=== PATIENT | female | born 1965 | race Hispanic/Latino ===

== ENCOUNTER 2017-12-26 13:03 | Emergency (ER) | payer BC ==
[2017-12-26 14:08] VITALS: BMI 29.2
== END 2017-12-26 16:39 | disposition left against medical advice (07) ==
LOC: ED 13:03
DX: Z02.89 Encounter for other administrative examinations (principal); Z00.00 Encounter for general adult medical examination without abnormal findings

== ENCOUNTER 2017-12-26 17:17 | Emergency (ER) | payer BC ==
[2017-12-26 17:18] VITALS: BMI 29.2
[2017-12-26 17:41] VITALS: BP 131/71; PULSE 64; RESP 20; TEMP 98.8; O2SAT 99
--- NOTE | 2017-12-26 18:40 | ED PDOC ---
Arrival/HPI - General Chief Complaint: Medical Clearance Time Seen by Provider: 12/26/17 18:23 Historian: Patient - History of Present Illness Narrative History of Present Illness (Text): 12/26/17 18:48 52-year-old female presents today concerned after having contact with a patient with known VRE resistant infection. Patient denies chest pain or shortness of breath. Patient denies cough. She denies fevers or chills. Patient denies fatigue. No abdominal pain. Patient denies any urinary symptoms. Patient states the family member of the patient with a resistant infection told her that she should get checked out. Patient also on a side note states that she has an area along the lower gingiva that is a wound that has not been healing. Patient complaining of minimal pain when she uses the dentures. Patient denies any recent trauma or injury. She denies trismus or drooling. Patient states she recently completed antibiotics but states the wound did not heal. Patient denies a history of smoking. Patient states she has been unable to follow-up with the dentist because she is away from her home town and believes that she will not be home for another month or so. Past Medical History - Provider Review Nursing Documentation Reviewed: Yes - Travel History Have you recently traveled outside [place] w/in the past 3 mons?: No - Infectious Disease Hx of Infectious Diseases: None - Reproductive Menopause: Yes - Cardiac Hx Cardiac Disorders: Yes Hx Pacemaker: Yes (2013) - Pulmonary Hx Respiratory Disorders: Yes Hx Bronchitis: Yes Hx Pneumonia: Yes - Neurological Hx Neurological Disorder: No - HEENT Hx HEENT Disorder: No - Renal Hx Renal Disorder: No - Endocrine/Metabolic Hx Endocrine Disorders: Yes Hx Diabetes Mellitus Type 2: Yes - Hematological/Oncological Hx Blood Disorders: Yes Hx Anemia: Yes Hx Leukemia: Yes - Integumentary Hx Dermatological Disorder: No - Musculoskeletal/Rheumatological Hx Musculoskeletal Disorders: No - Gastrointestinal Hx Gastrointestinal Disorders: No - Genitourinary/Gynecological Hx Genitourinary Disorders: No - Psychiatric Hx Psychophysiologic Disorder: No Hx Substance Use: No - Surgical History Hx Gastric Bypass Surgery: Yes Other/Comment: pacemaker - Anesthesia Hx Anesthesia: No Family/Social History - Physician Review Nursing Documentation Reviewed: Yes Family/Social History: Unknown Family HX Smoking Status: Never Smoked Hx Alcohol Use: Yes Hx Substance Use: No Allergies/Home Meds Allergies/Adverse Reactions: Allergies iron Allergy (Verified 12/26/17 14:07) RASH Home Medications: Home Meds Medication Instructions Recorded Confirmed Amoxicillin 875 mg PO BID 12/26/17 12/26/17 Aspirin 325 mg PO DAILY 12/26/17 12/26/17 Furosemide [Lasix] 80 mg PO DAILY 12/26/17 12/26/17 LORazepam [Ativan] 1 mg PO PRN PRN 12/26/17 12/26/17 Magnesium Oxide [Magnesium] 1,000 mg PO DAILY 12/26/17 12/26/17 Pantoprazole [Protonix] 40 mg PO DAILY 12/26/17 12/26/17 Phenobarbital [PHENobarbital Tab] 64.8 mg PO TID 12/26/17 12/26/17 Sucralfate [Carafate] 1 gm PO QID 12/26/17 12/26/17 Verapamil [Verapamil HCl] 120 mg PO TID 12/26/17 12/26/17 metFORMIN [glucOPHAGE] 500 mg PO BID 12/26/17 12/26/17 Review of Systems - Review of Systems Constitutional: absent: Fatigue, Fevers Respiratory: absent: SOB, Cough Cardiovascular: absent: Chest Pain, Palpitations Gastrointestinal: absent: Abdominal Pain, Nausea, Vomiting Genitourinary Female: absent: Dysuria, Frequency, Hematuria Musculoskeletal: absent: Arthralgias, Back Pain, Neck Pain Skin: Skin Lesions (ulcer in lower gums). absent: Rash, Pruritis Neurological: absent: Headache, Dizziness Psychiatric: absent: Anxiety, Depression Physical Exam Vital Signs Reviewed: Yes Vital Signs Temp Pulse Resp BP Pulse Ox 12/26/17 17:35 98.8 F 64 20 131/71 99 Temperature: Afebrile Blood Pressure: Normal Pulse: Regular Respiratory Rate: Normal Appearance: Positive for: Well-Appearing, Non-Toxic, Comfortable Pain Distress: None Mental Status: Positive for: Alert and Oriented X 3 - Systems Exam Head: Present: Atraumatic Mouth: Present: Moist Mucous Membranes, Normal Tounge. No: Drooling, Trismus, Normal Lips (there is a linear abrasion with small ulceration located along the lower gingiva and mucosa; no erythema; minimally tender, no edema ), Normal Teeth (dentures ) Neck: Present: Normal Range of Motion, Trachea Midline Respiratory/Chest: Present: Clear to Auscultation, Good Air Exchange. No: Respiratory Distress, Accessory Muscle Use Cardiovascular: Present: Regular Rate and Rhythm, Normal S1, S2. No: Murmurs Upper Extremity: Present: Normal ROM Lower Extremity: Present: Normal ROM Neurological: Present: GCS=15, Speech Normal Skin: Present: Warm, Dry Psychiatric: Present: Alert, Oriented x 3 Medical Decision Making ED Course and Treatment: 12/26/17 18:58 52yr old female presents today with concerns for boby VRE infection after having contact with a person with VRE uti. pt denies fevers,fatigue, weakness. pt with linear abrasion and small ulceration to mucosa/gingiva of lower mouth without erythema, edema or infection; wound possibly due to dentures. case discussed with dr. devi; will send blood cultures for vre infection. will place patient on clindamycin for dental ulcer/abrasion. advised f/u with dentist; advised patient of importance of f/u to r/o any cancerous lesion. advised immediate return if symptoms worsen,persist or if new symptoms develop. Patient verbalizes understanding of discharge instructions and need for immediate followup. all aspects of this case were discussed the attending of record. impression; mouth sore Clindamycin 3 times daily 7 days Follow-up with the dentist within the next 2 days Follow-up with primary care physician within the next 2 days Return immediately if symptoms worsen or persist or if new concerning symptoms develop: High fevers, increasing pain, redness, swelling, purulent discharge Disposition/Present on Arrival - Present on Arrival Any Indicators Present on Arrival: No History of DVT/PE: No History of Uncontrolled Diabetes: No Urinary Catheter: No History of Decub. Ulcer: No History Surgical Site Infection Following: None - Disposition Have Diagnosis and Disposition been Completed?: Yes Diagnosis: Ulceration, oral mucosa Disposition: HOME/ ROUTINE Disposition Time: 18:37 Patient Plan: Discharge Condition: GOOD Discharge Instructions (ExitCare): Mouth Sores Additional Instructions: Clindamycin 3 times daily 7 days Follow-up with the dentist within the next 2 days Follow-up with primary care physician within the next 2 days Return immediately if symptoms worsen or persist or if new concerning symptoms develop: High fevers, increasing pain, redness, swelling, purulent discharge Prescriptions: Clindamycin [Cleocin] 150 mg PO TID #21 cap Referrals: Jaden Rashid DMD [Non-Staff] - Follow up with primary Cristóbal Sheikh, HEATHER [Staff Provider] - Follow up with primary PCP,NO [Primary Care Provider] - Follow up with primary Shorty Alas DO [Staff Provider] - Follow up with primary
== END 2017-12-26 18:55 | disposition home or self-care (01) ==
LOC: ED 17:17
DX: K12.1 Other forms of stomatitis (principal); E11.9 Type 2 diabetes mellitus without complications

== ENCOUNTER 2018-10-09 11:09 | Outpatient (CLI) | payer BC | END 2018-10-09 11:10 | disposition home or self-care (01) | LOC: RAD 11:09 ==

== ENCOUNTER 2018-10-16 08:26 | Outpatient (CLI) | payer BC | END 2018-10-16 08:27 | disposition home or self-care (01) | LOC: RAD 08:26 ==

== ENCOUNTER 2019-01-09 18:50 | Inpatient (IN) | payer BC ==
[2019-01-09 19:15] VITALS: BMI 29.5
[2019-01-09] MEDS ORDERED: Sodium Chloride 0.9% 1,000 ML IV STA (19:15)
--- NOTE | 2019-01-09 19:23 | ED PDOC ---
Arrival/HPI <Phill Flower - Last Filed: 01/09/19 22:04> - General Historian: Patient - History of Present Illness Narrative History of Present Illness (Text): 01/09/19 23:12 53 y/o female with PMH of leukemia, type 2 DM, seizure disorder, presents to the ED c/o diarrhea x 4 days. Admits to 4-5 episodes of loose brown stools daily. Associated chills, nausea, lower back pain, and lower abdominal pain, worst in LLQ. Symptoms began after eating tacobell 4 days ago. No sick contacts, recent travel, or recent antibiotic use. Denies fever, vomiting, urinary symptoms, chest pain, SOB, cough, congestion, hematemesis, hematochezia, melena, vaginal bleeding, or any other associated symptoms. <Jane Ramírez - Last Filed: 01/12/19 19:07> - General Chief Complaint: Abdominal Pain Time Seen by Provider: 01/09/19 19:02 Past Medical History - Provider Review Nursing Documentation Reviewed: Yes - Infectious Disease Hx of Infectious Diseases: None - Cardiac Hx Cardiac Disorders: Yes Hx Internal Defibrillator: Yes Hx Pacemaker: Yes (2014) - Pulmonary Hx Respiratory Disorders: Yes Hx Bronchitis: Yes Hx Pneumonia: Yes - Neurological Hx Neurological Disorder: No - HEENT Hx HEENT Disorder: No - Renal Hx Renal Disorder: No - Endocrine/Metabolic Hx Endocrine Disorders: Yes Hx Diabetes Mellitus Type 2: Yes Hx Systemic Lupus Erythematosus: Yes - Hematological/Oncological Hx Blood Disorders: Yes Hx Anemia: Yes Hx Leukemia: Yes (remission) - Integumentary Hx Dermatological Disorder: No - Musculoskeletal/Rheumatological Hx Musculoskeletal Disorders: No - Gastrointestinal Hx Gastrointestinal Disorders: No - Genitourinary/Gynecological Hx Genitourinary Disorders: No - Psychiatric Hx Psychophysiologic Disorder: No Hx Substance Use: No - Surgical History Hx Gastric Bypass Surgery: Yes (+ revision) Other/Comment: pacemaker - Anesthesia Hx Anesthesia: Yes Hx Anesthesia Reactions: No <Jane Ramírez - Last Filed: 01/12/19 19:07> Family/Social History - Physician Review Nursing Documentation Reviewed: Yes Family/Social History: No Known Family HX Smoking Status: Never Smoked Hx Alcohol Use: Yes Hx Substance Use: No <Jane Ramírez - Last Filed: 01/12/19 19:07> Allergies/Home Meds <Phill Flower - Last Filed: 01/09/19 22:04> <Jane Ramírez - Last Filed: 01/12/19 19:07> Allergies/Adverse Reactions: Allergies iron Allergy (Verified 01/09/19 19:03) RASH Home Medications: Home Meds Medication Instructions Recorded Confirmed Aspirin 325 mg PO DAILY 12/26/17 01/09/19 Magnesium Oxide [Magnesium] 1,000 mg PO DAILY 12/26/17 01/09/19 Pantoprazole [Protonix] 40 mg PO DAILY 12/26/17 01/09/19 Phenobarbital [PHENobarbital Tab] 64.8 mg PO TID 12/26/17 01/09/19 Sucralfate [Carafate] 1 gm PO QID 12/26/17 01/09/19 Verapamil [Verapamil HCl] 120 mg PO TID 12/26/17 01/09/19 metFORMIN [glucOPHAGE] 500 mg PO BID 12/26/17 01/09/19 Chlorzoxazone [Lorzone] 500 mg PO DAILY 01/10/19 01/10/19 Cyclobenzaprine [Cyclobenzaprine 10 mg PO TID 01/10/19 01/10/19 HCl] Lisinopril [Zestril] 10 mg PO DAILY 01/10/19 01/10/19 Metoprolol Tartrate 50 mg PO BID 01/10/19 01/10/19 Review of Systems - Review of Systems Constitutional: Other (chills) Eyes: Normal. absent: Vision Changes ENT: Normal. absent: Sore Throat, Sinus Congestion Respiratory: Normal. absent: SOB, Cough Cardiovascular: Normal. absent: Chest Pain, Palpitations, Syncope Gastrointestinal: Abdominal Pain, Diarrhea, Nausea, Appetite Changes. absent: Vomiting Genitourinary Female: Normal. absent: Dysuria, Frequency, Vaginal Bleeding, Va ginal Discharge Musculoskeletal: Back Pain Skin: Normal. absent: Rash Neurological: Dizziness. absent: Headache, Focal Weakness, Gait Changes, Disequilibrium, Seizure <Jane Ramírez - Last Filed: 01/12/19 19:07> Physical Exam Vital Signs Temp Pulse Resp BP Pulse Ox 01/09/19 20:10 97.9 F 71 16 100/60 100 01/09/19 20:08 98.0 F 93 H 18 121/81 100 01/09/19 20:07 97.9 F 85 18 149/95 H 100 01/09/19 19:02 97.6 F 74 18 92/51 L 98 <MundoPhill - Last Filed: 01/09/19 22:04> Vital Signs Reviewed: Yes Vital Signs Pulse Resp BP Pulse Ox 01/09/19 19:02 74 18 92/51 L 98 Temperature: Afebrile Blood Pressure: Hypotensive Pulse: Regular Respiratory Rate: Normal Appearance: Positive for: Non-Toxic, Comfortable, Ill-Appearing Pain Distress: None Mental Status: Positive for: Alert and Oriented X 3 - Systems Exam Head: Present: Atraumatic, Normocephalic Pupils: Present: PERRL Extroacular Muscles: Present: EOMI Conjunctiva: Present: Normal Mouth: Present: Dry Neck: Present: Normal Range of Motion. No: Meningeal Signs Respiratory/Chest: Present: Clear to Auscultation, Good Air Exchange. No: Respiratory Distress, Accessory Muscle Use Cardiovascular: Present: Regular Rate and Rhythm, Normal S1, S2, Peripheal Pulses Present Abdomen: Present: Tenderness (generalized, worst LLQ), Normal Bowel Sounds. No: Distention, Peritoneal Signs Back: Present: Normal Inspection. No: CVA Tenderness Upper Extremity: Present: Normal Inspection, Normal ROM, NORMAL PULSES, Neurovascularly Intact, Capillary Refill < 2s. No: Cyanosis, Edema, Temperature Abnormalties Lower Extremity: Present: Normal Inspection, NORMAL PULSES, Normal ROM, Neurovas cularly Intact, Capillary Refill < 2 s. No: Edema, Temperature Abnormalties Neurological: Present: GCS=15, CN II-XII Intact, Speech Normal, Motor Func Grossly Intact, Normal Sensory Function, Gait Normal Skin: Present: Warm, Dry, Normal Color. No: Rashes Psychiatric: Present: Alert, Oriented x 3, Normal Insight, Normal Concentration, Normal Affect, Normal Mood <Jane Ramírez - Last Filed: 01/12/19 19:07> Medical Decision Making - Lab Interpretations Lab Results: PT 11.4 SECONDS (9.4-12.5) 01/09/19 19:41 INR 1.03 01/09/19 19:41 APTT 38.9 Seconds (26.9-38.3) H 01/09/19 19:41 Troponin I < 0.01 ng/mL 01/09/19 19:41 Total Bilirubin 0.5 mg/dL (0.2-1.3) 01/09/19 19:41 AST 26 U/L (14-36) 01/09/19 19:41 ALT 22 U/L (7-56) 01/09/19 19:41 Alkaline Phosphatase 89 U/L (38-126) 01/09/19 19:41 Total Protein 7.2 g/dL (5.8-8.3) 01/09/19 19:41 Albumin 4.2 g/dL (3.0-4.8) 01/09/19 19:41 Globulin 2.9 gm/dL 01/09/19 19:41 Albumin/Globulin Ratio 1.4 (1.1-1.8) 01/09/19 19:41 Lipase 55 U/L (23-300) 01/09/19 19:41 - RAD Interpretation Radiology Orders: 01/09/19 19:57 ABD & PELVIS PO CONTRAST ONLY [CT] Stat - Medication Orders Current Medication Orders: Sodium Chloride (Sodium Chloride 0.9%) 1,000 mls @ 100 mls/hr IV .Q10H SANTOS Discontinued Medications Famotidine (Pepcid) 20 mg IVP STAT STA Stop: 01/09/19 19:16 Last Admin: 01/09/19 19:45 Dose: 20 mg IVP Administration Document 01/09/19 19:45 [facility] (Rec: 01/09/19 19:45 [id number]) Charges for Administration # of IVP Administrations 1 Sodium Chloride (Sodium Chloride 0.9%) 1,000 mls @ 999 mls/hr IV .Q1H1M STA Stop: 01/09/19 20:15 Ketorolac Tromethamine (Toradol) 15 mg IVP STAT STA Stop: 01/09/19 19:16 Last Admin: 01/09/19 19:45 Dose: 15 mg MAR Pain Assessment Document 01/09/19 19:45 [facility] (Rec: 01/09/19 19:46 [id number]) Pain Reassessment Is this a pain reassessment? Yes Sleep Is patient sleeping during reassessment? No Presence of Pain Presence of Pain Yes Pain Scale Used Protocol: PSCALES Pain Scale Used Numeric Location Left, Right or Bilateral Bilateral Upper or Lower Lower Pain Location Body Site Abdomen Description Description Constant Intensity of Pain at present 10 IVP Administration Document 01/09/19 19:45 [facility] (Rec: 01/09/19 19:46 [facility] [id number]) Charges for Administration # of IVP Administrations 1 Metoclopramide HCl (Reglan) 10 mg IVP STAT STA Stop: 01/09/19 21:10 Morphine Sulfate (Morphine) 2 mg IVP STAT STA Stop: 01/09/19 21:31 <Phill Flower - Last Filed: 01/09/19 22:04> ED Course and Treatment: Initial Plan: * CBC, CMP * Coags * Troponin * UA * CT Abd/Pelvis * EKG * CXR * IVF * Toradol 19:58 Creatinine and BUN elevated, CT to be done with PO contrast. Will continue to hydrate. Mild hyperkalemia - will repeat Remainder of bloodwork unremarkable. 20:30 Reiterated repeat potassium to nurses, unable to get blood draw. Will have another nurse attempt. 21:00 Reiterated potassium repeat, lab will come to draw. BP has improved, patient reports feeling better. 22:00 Lab called again to draw blood. 01:01 CT shows enteritis and pneumobilia. Nurse Tony successful with blood draw to repeat potassium. Spoke with medicine oracle application architect, Dr. Burnham who accepted patient for inpatient admission with diagnosis of BRENDEN, dehydration, hyperkalemia. Requests D5/0.9%NS at 100cc/hr for maintenance fluids 01:39 Repeat potassium 4.1. Insulin and D50 syringe cancelled. Pt refusing D5W/NS fluids, states it will "make her sugar too high". Patient refused CXR - Lab Interpretations Lab Results: 01/09/19 19:41 01/09/19 19:41 Lab Results 01/09/19 23:55: pCO2 35, pO2 81.0, HCO3 18.0 L, ABG pH 7.32 L, ABG Total CO2 19.1 L, ABG O2 Saturation 96.3, ABG Base Excess -7.3 L, ABG Potassium 4.1, Glucose 105, Lactate 1.7, FiO2 21.0, Sodium 133.0, Chloride 107.0, Arterial Blood Potassium 4.1 01/09/19 23:02: Urine Color Yellow, Urine Appearance Sl cloudy, Urine pH 5.0, Ur Specific [place] >= 1.030, Urine Protein 30 H, Urine Glucose (UA) 100 H, Urine Ketones Trace H, Urine Blood Negative, Urine Nitrate Negative, Urine Bilirubin Moderate H, Urine Urobilinogen 0.2, Ur Leukocyte Esterase Small H, Urine RBC 0 - 2, Urine WBC 2 - 5, Ur Epithelial Cells 6 - 8 H, Calcium Oxalate Crystal Few, Urine Bacteria Trace 01/09/19 19:41: Phosphorus 5.2 H, Magnesium 2.1 01/09/19 19:41: Sodium 139, Potassium 5.5 H, Chloride 103, Carbon Dioxide 23, Anion Gap 19, BUN 39 H, Creatinine 2.1 H, Est GFR ( Amer) 30, Est GFR (Non-Af Amer) 25, Random Glucose 199 H, Calcium 9.2, Total Bilirubin 0.5, AST 26, ALT 22, Alkaline Phosphatase 89, Lactate Dehydrogenase 563, Total Creatine Kinase 46, Troponin I < 0.01, Total Protein 7.2, Albumin 4.2, Globulin 2.9, Albumin/Globulin Ratio 1.4, Lipase 55 01/09/19 19:41: PT 11.4, INR 1.03, APTT 38.9 H 01/09/19 19:41: WBC 6.7, RBC 5.38, Hgb 14.5, Hct 44.9, MCV 83.5, MCH 27.0, MCHC 32.3, RDW 13.6, Plt Count 177, MPV 11.9 H, Neut % (Auto) 73.2 H, Lymph % (Auto) 12.2 L, [place] % (Auto) 13.0 H, Eos % (Auto) 1.3 L, Baso % (Auto) 0.3, Lymph # (Auto) 0.8 L, [place] # (Auto) 0.9 H, Eos # (Auto) 0.1, Baso # (Auto) 0.02, Absolute Neuts (auto) 4.91 I have reviewed the lab results: Yes - RAD Interpretation Narrative RAD Interpretations (Text): 01/10/19 00:40 CT Abd/Pelvis with PO contrast: FINDINGS: LUNG BASES: The lung bases appear clear. No pleural effusions are seen. LIVER: There is hepatomegaly. The liver measured 17.8 cm in the midclavicular line. GALLBLADDER AND BILE DUCTS: Status post cholecystectomy. No biliary ductal dilatation is evident. Minimal pneumobilia is seen. PANCREAS: Unremarkable. SPLEEN: Unremarkable. ADRENAL GLANDS: Unremarkable. KIDNEYS, URETERS, AND BLADDER: The kidneys appear within normal limits. There is no hydronephrosis or hydroureter. No urinary calculi are seen. The urinary bladder appeared normal in size and configuration. STOMACH AND BOWEL: There is evidence of previous gastro-jejunal anastomosis; likely gastric bypass surgery. No evidence of bowel obstruction. There is mucosal wall thickening of the small intestinal tract thought compatible with diffuse enteritis. Infectious or inflammatory etiologies are thought most likely. No evidence suggesting colitis. APPENDIX: No evidence of acute appendicitis on CT examination. PERITONEUM: No free fluid. No free air. LYMPH NODES: No lymphadenopathy is evident. REPRODUCTIVE: Unremarkable as visualized. VASCULATURE: No evidence of abdominal aortic aneurysm. BONES: No aggressive appearing osseous lesion. No acute osseous pathology evident. There is evidence of degenerative disc diseaseat L1-2. IMPRESSION: 1. Evidence of diffuse enteritis. 2. Hepatomegaly. 3. Status post cholecystectomy. 4. Minimal pneumobilia is identified. 5. Evidence of previous gastrojejunal anastomosis; likely compatible with gastric bypass surgery. Electronically signed on January 10, 2019 12:13:31 AM EDT by: Arnold Ochoa M.D., Certified by MICHELLE, MSK, Neuroradiology Pulp Roller: Radiologist - EKG Interpretation EKG Interpretation (Text): 01/10/19 01:25 Rate 69; NSR; Prolonged QT; Left Lanse; No STEMI, non specific ST/T wave changes Interpreted by ED Physician: Yes Type: 12 lead EKG <Jane Ramírez - Last Filed: 01/12/19 19:07> - PA / UTILITY TECHNICIAN / Resident Statement /DO has reviewed & agrees with the documentation as recorded. /DO has examined the patient and agrees with the treatment plan. <Phill Flower - Last Filed: 01/09/19 22:04> Disposition/Present on Arrival <Phill Flower - Last Filed: 01/09/19 22:04> - Present on Arrival Any Indicators Present on Arrival: No History of DVT/PE: No History of Uncontrolled Diabetes: No Urinary Catheter: No History of Decub. Ulcer: No History Surgical Site Infection Following: None - Disposition Have Diagnosis and Disposition been Completed?: Yes Disposition Time: 01:00 Patient Plan: Admission <Jane Ramírez - Last Filed: 01/12/19 19:07> - Disposition Diagnosis: BRENDEN (acute kidney injury), Dehydration, Diarrhea, Enteritis Disposition: HOSPITALIZED Patient Problems: Current Active Problems Problem Status Onset BRENDEN (acute kidney injury) Acute Dehydration Acute Diarrhea Acute Enteritis Acute Condition: STABLE
[2019-01-09 19:51] LABS: BASO # 0.02 K/mm3 (0.0-2.0); BASO % 0.3 % (0.0-3.0); EOS # 0.1 (0.0-0.7); EOS % 1.3 % (1.5-5.0); HEMOGLOBIN 14.5 g/dL (12.0-16.0); LYMPH # 0.8 (1.2-3.4); LYMPH % 12.2 % (22.0-35.0); MEAN CELL VOLUME 83.5 fl (80.0-105.0); MEAN CORPUSCULAR HGB CONC 32.3 g/dl (31.0-37.0); MEAN PLATELET VOLUME 11.9 fl (7.0-11.0); MONO # 0.9 (0.1-0.6); RBC 5.38 10^6/uL (3.5-6.1); RED CELL DISTRIBUTION WIDTH 13.6 % (11.5-14.5); WHITE BLOOD COUNT 6.7 10^3/uL (4.5-11.0)
[2019-01-09 19:54] LABS: INR 1.03; PARTIAL THROMBOPLASTIN TIME 38.9 Seconds (26.9-38.3); PROTHROMBIN TIME 11.4 SECONDS (9.4-12.5)
[2019-01-09 19:55] LABS: ALB/GLOB RATIO 1.4 (1.1-1.8); ALBUMIN 4.2 g/dL (3.0-4.8); ALT/SGPT 22 U/L (7-56); AST/SGOT 26 U/L (14-36); BLOOD UREA NITROGEN 39 mg/dL (7-21); CALCIUM 9.2 mg/dL (8.4-10.5); GFR NON-AFRICAN AMERICAN 25; LIPASE 55 U/L (23-300)
[2019-01-09 20:06] LABS: TROPONIN I < 0.01 ng/mL
[2019-01-09] MEDS ORDERED: Iohexol 240 (50 ml) ONE (20:15)
[2019-01-09] MEDS ORDERED: Morphine 2 mg/ml ISec IVP STA (21:30)
[2019-01-09] MEDS: Sodium Chloride 0.9% 1,000 ML IV SCH (22:36)
[2019-01-09 23:22] LABS: URINE BILIRUBIN MODERATE (NEGATIVE); URINE BLOOD NEGATIVE (NEGATIVE); URINE GLUCOSE (UA) 100 mg/dL (NEGATIVE); URINE LEUKOCYTE ESTERASE SMALL Leu/uL (NEGATIVE); URINE PROTEIN 30 mg/dL (<30 mg/dL); URINE UROBILINOGEN 0.2 E.U./dL (<1 E.U./dL)
[2019-01-09 23:24] LABS: URINE APPEARANCE SL CLOUDY (CLEAR); URINE COLOR YELLOW (YELLOW)
[2019-01-09] MEDS ORDERED: Albuterol 0.083% Inhal Sol (2.5 mg/3 mL) UD INH STA (23:40)
[2019-01-09 23:49] LABS: URINE RBC 0 - 2 /hpf (0-2)
[2019-01-09 23:50] LABS: URINE BACTERIA TRACE /hpf; URINE CALCIUM OXALATE CRYSTALS FEW /hpf
[2019-01-10] LABS: ARTERIAL BLOOD GAS O2 SAT 96.3 % (95-98); ARTERIAL BLOOD GAS PCO2 35 mm/Hg (35-45); ARTERIAL BLOOD GAS PH 7.32 (7.35-7.45); ARTERIAL BLOOD GAS TCO2 19.1 mmol.L (22-28)
[2019-01-10] MEDS ORDERED: Insulin Regular 1 UNITS/0.01 ML ML IV STA (00:04)
[2019-01-10] MEDS ORDERED: Dextrose 50% SYRINGE Inj (50 ml) IVP STA (00:19)
[2019-01-10] MEDS ORDERED: Dextrose 5%/0.9% NS 1,000 ML IV SCH (00:45)
[2019-01-10] MEDS ORDERED: Morphine 2 mg/ml ISec IVP STA ×2 (00:52→04:52)
[2019-01-10 09:11] LABS: CREATININE,RANDOM URINE 63 mg/dL; TOTAL PROTEIN,RANDOM URINE 21 mg/L
--- NOTE | 2019-01-10 09:15 | CARD ---
APPROVED REPORT Date of service: 01/09/2019 EKG Measurement Heart [id number] <Conclusion> Normal sinus rhythm Left anterior fascicular block Voltage criteria for left ventricular hypertrophy with repolarization abnormality Abnormal ECG
[2019-01-10 09:16] LABS: MEAN CELL VOLUME 82.7 fl (80.0-105.0); MEAN CORPUSCULAR HEMOGLOBIN 26.5 pg (25.0-35.0); MEAN CORPUSCULAR HGB CONC 32.1 g/dl (31.0-37.0); MEAN PLATELET VOLUME 11.1 fl (7.0-11.0); RBC 4.56 10^6/uL (3.5-6.1); RED CELL DISTRIBUTION WIDTH 13.5 % (11.5-14.5); WHITE BLOOD COUNT 3.8 10^3/uL (4.5-11.0)
[2019-01-10 09:20] LABS: HEMOGLOBIN 12.1 g/dL (12.0-16.0)
[2019-01-10 09:31] LABS: ALB/GLOB RATIO 1.4 (1.1-1.8); ALBUMIN 3.5 g/dL (3.0-4.8); CALCIUM 8.9 mg/dL (8.4-10.5)
--- NOTE | 2019-01-10 09:34 | CT ---
Date of service: 01/09/2019 PROCEDURE: CT Abdomen and Pelvis with contrast HISTORY: LLQ pain, diarrhea, elevated creatinine COMPARISON: The the left she the and for 8 8 the the extract the ovoid the the remaining FLAIR of the PP of the TECHNIQUE: CT scan of the abdomen and pelvis was performed after administration of intravenous contrast. Oral contrast was administered. Coronal and sagittal reformatted images were obtained. Contrast dose: Radiation dose: Total exam DLP = 744.16 mGy-cm. This CT exam was performed using one or more of the following dose reduction techniques: Automated exposure control, adjustment of the mA and/or kV according to patient size, and/or use of iterative reconstruction technique. FINDINGS: LOWER THORAX: The visualized lungs are clear. LIVER: Mild hepatomegaly. Mild pneumobilia, postsurgical. No gross lesion or ductal dilatation. GALLBLADDER AND BILE DUCTS: Well distended. No calcified gallstones, wall thickening or pericholecystic fluid. PANCREAS: Normal in size. No gross lesion or ductal dilatation. SPLEEN: Normal in size. ADRENALS: No discrete nodule. KIDNEYS AND URETERS: Normal in size. No hydronephrosis. No solid mass. VASCULATURE: No aortic aneurysm. There are no aortic atherosclerotic calcifications or mural plaque present. BOWEL: Postsurgical changes in the stomach and status post gastrojejunostomy. There is mild dilatation of small bowel loops and circumferential mural thickening in several segments of the small bowel. There is mild segment and mural thickening in the terminal ileum. There is moderate amount of stool in the colon. No bowel obstruction. APPENDIX: Normal appendix. PERITONEUM: No free fluid. No free air. LYMPH NODES: No enlarged lymph nodes. BLADDER: Well distended and normal in appearance. REPRODUCTIVE: The uterus is normal in size. BONES: No acute fracture. Within normal limits for the patient's age. OTHER FINDINGS: None. IMPRESSION: 1. Postsurgical changes in the stomach and status post gastrojejunostomy. Mild dilatation of the small bowel loops with circumferential mural thickening and moderate circumferential mural thickening in the terminal ileum and several small bowel segments may represent nonspecific acute infectious/inflammatory enteritis. No bowel obstruction. 2. Mild hepatomegaly. Macro
[2019-01-10] MEDS ORDERED: Alum-Mag Hydrox-Simethicone Susp (30 mL) PO ONE (10:53)
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
[2019-01-10] MEDS: Lactobacillus Acidophilus 500 MU Cap PO SCH ×2 (11:05→17:43)
[2019-01-10] MEDS: Insulin Lispro (humaLOG) LOW Coverage SC SCH ×2 (11:37→17:19)
[2019-01-10] MEDS: Sodium Chloride 0.9% 1,000 ML IV SCH ×2 (11:49→21:50)
[2019-01-10] MEDS ORDERED: Oxycodone/Acetaminophen 5/325 mg Tab PO PRN (12:53)
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
[2019-01-10] MEDS: Pantoprazole 40 mg EC Tab PO SCH (17:43)
[2019-01-10] MEDS: Sucralfate 1 gm/10 ml Oral Susp UD PO SCH ×3 (17:43→21:49)
--- NOTE | 2019-01-11 01:26 | HP ---
DATE OF EXAM: 01/10/2019 HISTORY OF PRESENT ILLNESS: The patient was seen and examined. I do agree with the note of the medical corps officer. The patient has multiple comorbidities with lupus, fibromyalgia, seizure disorder, pacemaker, and AICD. She had come into the hospital because she was having diarrhea, but multiple episodes over the past week. She states she is currently comfortable. She had no complaints of any chest pain or shortness of breath. She said the diarrhea has been an issue for her and it is not improving. She had a CT scan done in the emergency room and she was found to have an enteritis. There is some mural thickening aspect of the small bowel. there is no thickening of the terminal ileum and there is a moderate amount of stool in the colon. She is going to be seen by GI. The patient has enteritis. She also has acute kidney injury with an elevated creatinine. She is going to be given IV fluids. Repeat creatinine is better. Her hyperkalemia is also improved. She has hypophosphatemia and this also should improve with IV hydration. She has a history of splenectomy. The patient is going to be on Protonix. She is on phenobarbital for seizures. She is on a liquid diet. She is going to be on insulin sliding scale with coverage for her diabetes. We will await for the input from GI. Parker Murry MD
[2019-01-11] MEDS: Insulin Lispro (humaLOG) LOW Coverage SC SCH ×4 (04:21→17:31)
[2019-01-11] MEDS: Pantoprazole 40 mg EC Tab PO SCH ×2 (06:09→16:31)
[2019-01-11] MEDS: Sucralfate 1 gm/10 ml Oral Susp UD PO SCH ×4 (06:09→21:17)
[2019-01-11 08:55] LABS: BASO # 0.03 K/mm3 (0.0-2.0); BASO % 0.6 % (0.0-3.0); EOS # 0.3 (0.0-0.7); EOS % 5.4 % (1.5-5.0); HEMOGLOBIN 13.5 g/dL (12.0-16.0); LYMPH # 2.3 (1.2-3.4); LYMPH % 47.8 % (22.0-35.0); MEAN CELL VOLUME 82.3 fl (80.0-105.0); MEAN CORPUSCULAR HEMOGLOBIN 26.3 pg (25.0-35.0); MEAN PLATELET VOLUME 10.8 fl (7.0-11.0); MONO # 0.5 (0.1-0.6); MONO % 9.7 % (1.0-6.0); RBC 5.13 10^6/uL (3.5-6.1); RED CELL DISTRIBUTION WIDTH 13.5 % (11.5-14.5); WHITE BLOOD COUNT 4.8 10^3/uL (4.5-11.0)
[2019-01-11 09:06] LABS: ALB/GLOB RATIO 1.4 (1.1-1.8); ALBUMIN 3.7 g/dL (3.0-4.8); ALT/SGPT 23 U/L (7-56); AST/SGOT 24 U/L (14-36); BLOOD UREA NITROGEN 19 mg/dL (7-21); CALCIUM 8.6 mg/dL (8.4-10.5); GFR NON-AFRICAN AMERICAN > 60
[2019-01-11] MEDS: Lactobacillus Acidophilus 500 MU Cap PO SCH ×2 (09:44→17:29)
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
--- NOTE | 2019-01-11 12:49 | CP.PCM.PN ---
<Yelena Gr - Last Filed: 01/11/19 12:46> Subjective - Date & Time of Evaluation Date of Evaluation: 01/11/19 Time of Evaluation: 07:15 - Subjective Subjective: Progress Note for Dr. Murry Service Patient seen and examined at bedside. Patient states that her nausea and vomiting has improved, and she had tolerated cookies and crackers overnight. no further episodes of diarrhea. Patient denied fever, chills, shortness of breath, chest pains, nausea, vomiting, diarrhea, constipation or dysuria. Patient noted abdominal cramping and mild pain improved but present. Objective - Vital Signs/Intake and Output Vital Signs (last 24 hours): Temp Pulse Resp BP Pulse Ox 97.3 F L 60 18 160/88 H 97 01/11/19 06:00 01/11/19 10:13 01/11/19 06:00 01/11/19 10:13 01/11/19 06:00 Intake and Output: 01/11/19 01/11/19 06:59 18:59 Intake Total 360 Balance 360 - Medications Medications: Current Medications Acetaminophen (Tylenol 325mg Tab) 650 mg PO Q4H PRN PRN Reason: Pain, Mild (1-3) Aspirin (Aspirin) 325 mg PO DAILY [facility] Last Admin: 01/11/19 09:44 Dose: 325 mg Cyclobenzaprine HCl (Flexeril) 10 mg PO TID [facility] Last Admin: 01/11/19 09:45 Dose: 10 mg Sodium Chloride (Sodium Chloride 0.9%) 1,000 mls @ 100 mls/hr IV .Q10H [facility] Last Admin: 01/10/19 21:50 Dose: 100 mls/hr Insulin Human Lispro (Humalog Low) 0 units SC ACHS [facility]; Protocol Last Admin: 01/11/19 07:50 Dose: Not Given Ketorolac Tromethamine (Toradol) 15 mg IVP Q6 PRN PRN Reason: Pain, moderate (4-7) Stop: 01/15/19 13:30 Last Admin: 01/11/19 09:44 Dose: 15 mg Lactobacillus Acidophilus (Bacid Acidophilus) 1 cap PO BID [facility] Last Admin: 01/11/19 09:44 Dose: 1 cap Lisinopril (Zestril) 10 mg PO DAILY [facility] Last Admin: 01/10/19 11:42 Dose: Not Given Metoclopramide HCl (Reglan) 5 mg IVP [facility] Metoprolol Tartrate (Lopressor) 50 mg PO BID [facility] Last Admin: 01/10/19 11:42 Dose: Not Given Oxycodone/Acetaminophen (Percocet 5/325 Mg Tab) 1 tab PO Q6H PRN PRN Reason: Pain, moderate (4-7) Stop: 01/13/19 12:54 Pantoprazole Sodium (Protonix Ec Tab) 40 mg PO 0600,1600 [facility] Last Admin: 01/11/19 06:09 Dose: 40 mg Phenobarbital (Phenobarbital Tab) 64.8 mg PO TID [facility] Last Admin: 01/11/19 09:45 Dose: 64.8 mg Sucralfate (Carafate Oral Susp) 1 gm PO 0630,1130,1630,2200 [facility] Last Admin: 01/11/19 06:09 Dose: 1 gm Verapamil HCl (Calan Tab) 120 mg PO TID [facility] Last Admin: 01/11/19 10:13 Dose: 120 mg - Labs Labs: 01/11/19 08:30 01/11/19 08:30 PT 11.4 SECONDS (9.4-12.5) 01/09/19 19:41 INR 1.03 01/09/19 19:41 APTT 38.9 Seconds (26.9-38.3) H 01/09/19 19:41 - Constitutional Appears: No Acute Distress - Head Exam Head Exam: ATRAUMATIC, NORMAL INSPECTION, NORMOCEPHALIC - Eye Exam Eye Exam: EOMI, Normal appearance, PERRL Pupil Exam: NORMAL ACCOMODATION, PERRL - ENT Exam ENT Exam: Mucous Membranes Moist, Normal Exam - Respiratory Exam Respiratory Exam: Clear to Ausculation Bilateral, NORMAL BREATHING PATTERN - Cardiovascular Exam Cardiovascular Exam: REGULAR RHYTHM, +S1, +S2. absent: Murmur - GI/Abdominal Exam GI & Abdominal Exam: Soft, Tenderness, Hypoactive Bowel Sounds - Neurological Exam Neurological Exam: Alert, Awake, CN II-XII Intact, Normal Gait, Oriented x3 - Psychiatric Exam Psychiatric exam: Normal Affect, Normal Mood - Skin Skin Exam: Dry, Intact, Normal Color, Warm Assessment and Plan - Assessment and Plan (Free Text) Assessment: Enteritis diarrhea, improving BRENDEN 2/2 diarrhea/dehydration hyperkalemia, resolved hyperphosphatemia nausea 2/2 enteritis hepatomegaly splenectomy SLE Seizure disorder hx AICD/pacemaker Plan: Patient is comfortable. Patient will have diarrhea workup, fu giardia, ova and parasite, Cdiff, stool culture, rotavirus. GI consulted, advance diet as tolerated. BRENDEN resolved. Hyperkalemia resolved. Continue verapamil. Continue to monitor. Protonix for history of ulcer. Continue phenobarbitol for seizure disorder. ISS for DM2. Likely for outpatient followup. Discussed with Dr. Murry <Parker Murry S - Last Filed: 01/11/19 19:45> Objective - Vital Signs/Intake and Output Vital Signs (last 24 hours): Temp Pulse Resp BP Pulse Ox 98.1 F 60 18 122/79 96 01/11/19 14:00 01/11/19 14:00 01/11/19 14:00 01/11/19 14:00 01/11/19 14:00 - Medications Medications: Current Medications Acetaminophen (Tylenol 325mg Tab) 650 mg PO Q4H PRN PRN Reason: Pain, Mild (1-3) Aspirin (Aspirin) 325 mg PO DAILY [facility] Last Admin: 01/11/19 09:44 Dose: 325 mg Cyclobenzaprine HCl (Flexeril) 10 mg PO TID [facility] Last Admin: 01/11/19 17:24 Dose: 10 mg Sodium Chloride (Sodium Chloride 0.9%) 1,000 mls @ 100 mls/hr IV .Q10H [facility] Last Admin: 01/10/19 21:50 Dose: 100 mls/hr Insulin Human Lispro (Humalog Low) 0 units SC [facility]; Protocol Last Admin: 01/11/19 17:31 Dose: 1 units Ketorolac Tromethamine (Toradol) 15 mg IVP Q6 PRN PRN Reason: Pain, moderate (4-7) Stop: 01/15/19 13:30 Last Admin: 01/11/19 17:24 Dose: 15 mg Lactobacillus Acidophilus (Bacid Acidophilus) 1 cap PO BID [facility] Last Admin: 01/11/19 17:29 Dose: 1 cap Lisinopril (Zestril) 10 mg PO DAILY [facility] Last Admin: 01/10/19 11:42 Dose: Not Given Metoclopramide HCl (Reglan) 5 mg IVP [facility] Last Admin: 01/11/19 17:33 Dose: 5 mg Metoprolol Tartrate (Lopressor) 50 mg PO BID [facility] Last Admin: 01/11/19 17:38 Dose: 50 mg Oxycodone/Acetaminophen (Percocet 5/325 Mg Tab) 1 tab PO Q6H PRN PRN Reason: Pain, moderate (4-7) Stop: 01/13/19 12:54 Pantoprazole Sodium (Protonix Ec Tab) 40 mg PO 0600,1600 [facility] Last Admin: 01/11/19 16:31 Dose: 40 mg Phenobarbital (Phenobarbital Tab) 64.8 mg PO TID [facility] Last Admin: 01/11/19 17:29 Dose: 64.8 mg Sucralfate (Carafate Oral Susp) 1 gm PO 0630,1130,1630,2200 [facility] Last Admin: 01/11/19 17:29 Dose: 1 gm Verapamil HCl (Calan Tab) 120 mg PO TID [facility] Last Admin: 01/11/19 17:29 Dose: 120 mg - Labs Labs: 01/11/19 08:30 01/11/19 08:30 PT 11.4 SECONDS (9.4-12.5) 01/09/19 19:41 INR 1.03 01/09/19 19:41 APTT 38.9 Seconds (26.9-38.3) H 01/09/19 19:41 Assessment and Plan - Assessment and Plan (Free Text) Assessment: Pt seen and examined by me. I have reviewed the note of the medical transcription and I agree with it. I have discussed the assessment and plan with the resident. I have reviewed the medications and the last labs.
--- NOTE | 2019-01-12 00:50 | PN ---
DATE: 01/11/2019 SUBJECTIVE: The patient was seen and examined. I do agree with the note of the electromedical service engineer. I was involved in the plan of care. The patient has enteritis. She is currently comfortable. Her diarrhea is improved. She had acute kidney injury that has improved as well. She has hyperkalemia that has resolved. She is being followed by GI. No further intervention is needed. She had blood cultures and urine cultures that have been negative. She is going to continue with her verapamil. She is receiving Percocet for pain. She is on IV fluids. I will discontinue the patient's IV fluid at this point. Her diet has been advanced. She is on ketorolac for her pain as well. Parker Murry MD
[2019-01-12] MEDS: Insulin Lispro (humaLOG) LOW Coverage SC SCH ×5 (04:14→22:30)
[2019-01-12] MEDS: Pantoprazole 40 mg EC Tab PO SCH ×2 (05:06→16:27)
[2019-01-12] MEDS: Sucralfate 1 gm/10 ml Oral Susp UD PO SCH ×4 (06:21→22:29)
[2019-01-12] MEDS: Lactobacillus Acidophilus 500 MU Cap PO SCH ×2 (09:32→17:36)
--- NOTE | 2019-01-12 14:47 | PN ---
DATE: 01/12/2019 SUBJECTIVE: The patient is sitting in bed, comfortable. She had some mild abdominal cramps requiring Toradol. She denies any nausea, vomiting or diarrhea. She is tolerating solid foods. PHYSICAL EXAMINATION VITAL SIGNS: Reveal temperature of 98.3, blood pressure 167/89, heart rate is 65. HEENT: Reveals sclerae to be white. Conjunctivae pink. Oral mucosa is moist. NECK: Supple. CHEST: Lungs are clear. HEART: Reveals regular rate and rhythm. ABDOMEN: Flabby, soft, nontender. EXTREMITIES: Show no edema. LABORATORY DATA: Reveals white blood cell count 4.8, hemoglobin 13.5. Chemistries reveal no new chemistries from today other than blood sugar of 139. IMPRESSION: A 53-year-old female admitted to the hospital with profuse diarrhea for several days, dehydration with acute renal failure. Her symptoms began after eating a burrito at [employer] She has not provided any stool specimens for culture, O&P or Giardia antigen. Her diarrhea has resolved for the last 48 hours. I suspect if this was a foodborne illness. RECOMMENDATIONS: No further GI workup planned at this time. She is stable from a GI standpoint. Patrice Hoffman MD
[2019-01-12 15:30] VITALS: O2SAT 98
[2019-01-13] MEDS ORDERED: CHLORZOXAZONE 500 MG PO ONE (00:33)
--- NOTE | 2019-01-13 02:09 | PN ---
DATE: 01/12/2019 SUBJECTIVE: The patient has no complaints of any chest pain. No shortness of breath. She says her abdominal pain is better, but not totally gone. PHYSICAL EXAMINATION: VITAL SIGNS: Temperature is 98.1, pulse of 60, blood pressure is 167/93, respirations 18. GENERAL: The patient is lying in bed, flat, comfortable. HEENT: No oral lesion. Anicteric sclerae. Moist mucosa. NECK: No JVD, adenopathy, or thyromegaly. CARDIOVASCULAR: S1 and S2, regular. No murmurs, rubs, or gallops. LUNGS: Clear to auscultation bilaterally. No wheeze, rales, or rhonchi. ABDOMEN: Bowel sounds are positive. Soft, nontender, nondistended. EXTREMITIES: No cyanosis, clubbing, or edema. LABORATORY DATA: White count is 4.8, hemoglobin is 15.5, creatinine is 0.8. ASSESSMENT: 1. Enteritis. 2. Acute kidney injury, resolved. 3. Hyperkalemia, improved. 4. Hyperphosphatemia, improving. 5. Hepatomegaly. 6. ___ status post splenectomy. 7. Systemic lupus erythematosus. 8. Seizure disorder. PLAN: The patient is currently on aspirin daily. She is receiving verapamil for the hypertension. She is on metoprolol for the hypertension as well. She is on phenobarbital for seizure disorder. She is going to continue with Percocet as needed for pain. She is on ketorolac for pain as well. She is on lisinopril for hypertension. She is tolerating her diet. She is expected to go home in the morning. She has improved significantly. Parker Murry MD
[2019-01-13] MEDS: Pantoprazole 40 mg EC Tab PO SCH ×2 (05:39→16:31)
[2019-01-13] MEDS: Sucralfate 1 gm/10 ml Oral Susp UD PO SCH ×3 (06:25→16:31)
[2019-01-13] MEDS: Insulin Lispro (humaLOG) LOW Coverage SC SCH ×3 (08:33→16:31)
[2019-01-13] MEDS: Lactobacillus Acidophilus 500 MU Cap PO SCH (09:12)
[2019-01-13 14:56] VITALS: TEMP 98.3
[2019-01-13 17:01] VITALS: BP 136/80; PULSE 64; RESP 18
== END 2019-01-13 17:41 | disposition home or self-care (01) | DRG 392 ==
LOC: ED 18:50 → ERH 01-10 00:44 → 2RSO 01-10 02:40 → 5RNO 01-10 12:57
PROVIDERS: ADMIT Internal Medicine Nephrology; ATTEND Internal Medicine Nephrology
DX: K52.9 Noninfective gastroenteritis and colitis, unspecified (principal); N17.9 Acute kidney failure, unspecified; E86.0 Dehydration; E87.5 Hyperkalemia; E83.39 Other disorders of phosphorus metabolism; M32.9 Systemic lupus erythematosus, unspecified; G40.909 Epilepsy, unspecified, not intractable, without status epilepticus; E11.9 Type 2 diabetes mellitus without complications; I10 Essential (primary) hypertension; F17.210 Nicotine dependence, cigarettes, uncomplicated; M79.7 Fibromyalgia; R16.0 Hepatomegaly, not elsewhere classified; E66.9 Obesity, unspecified; Z68.31 Body mass index [BMI] 31.0-31.9, adult; Z79.84 Long term (current) use of oral hypoglycemic drugs; Z79.82 Long term (current) use of aspirin; Z95.810 Presence of automatic (implantable) cardiac defibrillator; Z98.84 Bariatric surgery status